=== PATIENT | female | born 2000 | race American Indian/Alaskan Native ===

== ENCOUNTER 2022-07-11 23:51 | Emergency (ER) | payer SELFPAY ==
[2022-07-12 01:24] LABS: HCG Qualitative,Urine Positive (Negative)
[2022-07-12 01:25] LABS: Color,Urine Yellow (Yellow)
[2022-07-12 01:34] LABS: Lymphocytes % (Auto) 42.9 % (13.4-35.0); Mean Corpuscular HGB Conc 33 % (30-34); Mean Corpuscular Volume 94 fl (79-97); Mean Platelet Volume 8.8 fl (6-12); Monocytes % (Auto) 8.5 % (0.0-7.3); Platelet Count 221 K/mm3 (140-440); Red Cell Distribution Width 12.1 % (13.2-15.2)
[2022-07-12 01:35] LABS: Basophils % (Auto) 0.4 % (0.0-1.8); Eosinophils # (Auto) 0.1 K/mm3 (0.0-0.4); Eosinophils % (Auto) 1.5 % (0.0-4.3); Monocytes # (Auto) 0.4 K/mm3 (0.0-0.8)
[2022-07-12 02:22] LABS: BUN/Creatinine Ratio 13; Blood Urea Nitrogen 8 mg/dL (7-17); Calcium 9.1 mg/dL (8.4-10.2)
[2022-07-12 02:23] LABS: Alanine Aminotransferase 21 units/L (7-56); Bilirubin,Direct 0.2 mg/dL (0-0.2)
[2022-07-12] MEDS ORDERED: ACETAMINOPHEN 325 MG TAB PO ONE (03:20)
--- NOTE | 2022-07-12 03:25 | Emergency Department Report ---
ED Abdominal Pain HPI - General Chief Complaint: Abdominal Pain Stated Complaint: ABDOMINAL PAIN Time Seen by Provider: 07/12/22 00:46 Source: patient Mode of arrival: Stretcher Limitations: No Limitations - History of Present Illness Initial Comments: Patient is 22-year-old female presenting to ED with complaint of left lower quadrant pain worsening over the past 2-1/2 weeks. She denies any fever or chills. Reports associated dysuria. She describes the pain as an aching/sharp sensation. - Related Data Allergies Allergy/AdvReac Type Severity Reaction Status Date / Time amoxicillin Allergy Hives Verified 07/12/22 00:20 ED Review of Systems ROS: Stated complaint: ABDOMINAL PAIN Other details as noted in HPI Constitutional: denies: chills, fever Respiratory: denies: cough, shortness of breath, wheezing Cardiovascular: denies: chest pain, palpitations Gastrointestinal: abdominal pain. denies: nausea, vomiting Musculoskeletal: denies: back pain, joint swelling, arthralgia Skin: denies: rash, lesions Neurological: denies: headache, weakness, paresthesias Psychiatric: denies: anxiety, depression ED Past Medical Hx - Past Medical History Previous Medical History?: Yes Additional medical history: Anemia. Ovarian Cyst - Surgical History Past Surgical History?: No - Social History Smoking Status: Current Every Day Smoker Substance Use Type: Marijuana ED Physical Exam - General Limitations: No Limitations General appearance: alert, in no apparent distress - Head Head exam: Present: atraumatic, normocephalic - Neck Neck exam: Present: normal inspection - Respiratory Respiratory exam: Present: normal lung sounds bilaterally. Absent: respiratory distress - Cardiovascular Cardiovascular Exam: Present: regular rate, normal rhythm, normal heart sounds - GI/Abdominal GI/Abdominal exam: Present: soft, tenderness (Moderate tenderness in LLQ, mild tenderness in RLQ). Absent: distended, guarding, rebound, mass - Rectal Rectal exam: Present: deferred - Neurological Exam Neurological exam: Present: alert, oriented X3 - Psychiatric Psychiatric exam: Present: normal affect, normal mood - Skin Skin exam: Present: warm, dry, intact, normal color ED Course Vital Signs 07/11/22 23:52 Temperature 98 F Pulse Rate 88 Respiratory 18 Rate Blood Pressure 128/90 O2 Sat by Pulse 99 Oximetry ED Medical Decision Making - Lab Data Result diagrams: 07/12/22 00:55 07/12/22 00:55 - Medical Decision Making 22-year-old female presenting with complaint of left lower quadrant pain worsening over the past 2 and half weeks. Urinalysis is unremarkable however UPT today is positive. I discussed these results with the patient who states that she was not aware that she was . I explained to her that we would need to order additional testing including beta quant hCG and ultrasound. Patient grew tired of waiting and requests to sign out AMA. I discussed with her my concern for potential ectopic along with the risks of leaving AMA including . Patient voiced understanding of my concerns and despite my attempts to persuade her to stay she decides to sign out AMA. Critical care attestation.: If time is entered above; I have spent that time in minutes in the direct care of this critically ill patient, excluding procedure time. ED Disposition Clinical Impression: Left lower quadrant pain, , Dysuria Disposition: 07 LEFT AGAINST MEDICAL ADVICE Is pt being admited?: No Condition: Stable Instructions: Abdominal Pain (ED), Abdominal Pain During , [id number] Additional Instructions: It is important that you follow-up with your regular doctor and/or [employer] [facility]ATOR as soon as possible for urgent ultrasound as you may have an ectopic which can be life-threatening. Please return or seek care immediately if your symptoms worsen. Time of Disposition: 04:08
[2022-07-12 04:20] VITALS: BP 118/76
== END 2022-07-12 04:15 | disposition left against medical advice (07) ==
LOC: ED 23:51
DX: O26.899 Other specified pregnancy related conditions, unspecified trimester (principal); R10.32 Left lower quadrant pain; R30.0 Dysuria; F17.200 Nicotine dependence, unspecified, uncomplicated; F10.20 Alcohol dependence, uncomplicated; Z88.0 Allergy status to penicillin
CPT/HCPCS: 36415; 80048; 80076; 81001; 81025; 83690; 84702; 85025; 99284

== ENCOUNTER 2022-07-30 17:05 | Emergency (ER) | payer MEDICAID ==
[2022-07-30 17:20] VITALS: BP 106/52
[2022-07-30 21:39] LABS: Color,Urine Straw (Yellow); HCG Qualitative,Urine Positive (Negative)
[2022-07-30 21:44] LABS: Mucus,Urine 1+ /HPF
== END 2022-07-30 21:31 | disposition left against medical advice (07) ==
LOC: ED 17:05
DX: R10.9 Unspecified abdominal pain (principal); Z53.21 Procedure and treatment not carried out due to patient leaving prior to being seen by health care provider
CPT/HCPCS: 81001; 81025